=== PATIENT | female | born 1945 ===

== ENCOUNTER 2020-04-20 06:49 | Day surgery (SDC) | payer OTHER ==
[~2020-04-20 06:49] MED LIST: COZAAR50 MG PO; CRESTOR10 MG PO; FOSAMAX PO; SYNTHROID50 MCG PO
[2020-04-20] MEDS ORDERED: Tylenol #3 PO (10:00)
== END 2020-04-20 12:25 | disposition home or self-care (01) ==
LOC: CIR.AMB 06:49
PROVIDERS: ATTEND Obstetrics & Gynecology
DX: D27.1 Benign neoplasm of left ovary (principal); Z20.828 Contact with and (suspected) exposure to other viral communicable diseases